=== PATIENT | female | born 1970 | race Caucasian/White ===

== ENCOUNTER 2017-10-27 12:10 | Emergency (ER) | payer OTHER ==
[2017-10-27] MEDS ORDERED: XYLOCAINE 1% HCL 20 ML MDV IJ ONE (12:40)
[2017-10-27] MEDS ORDERED: Adacel Vial IM ONE ×2 (12:40→13:22)
--- NOTE | 2017-10-27 12:40 | ERPHSYRPT ---
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 She doesn't recall the last time she had her tetanus vaccination. She has no numbness or tingling. She is able to move her thumb and finger without difficulty. Her past medical history is unremarkable. Timing/Duration: today Quality: painful Severity: mild Location: hands (left) Possible Causes: other (laceration) Allergies/Adverse Reactions: No Known Drug Allergies Allergy (Unverified 10/27/17 12:20) Home Medications: Venlafaxine HCl [Venlafaxine HCl] 1 tab PO DAILY 10/27/17 [History] Hx Tetanus, Diphtheria Vaccination/Date Given: No Hx Influenza Vaccination/Date Given: No Hx Pneumococcal Vaccination/Date Given: No Immunizations Up to Date: Yes - Review of Systems Constitutional: No Fever, No Chills Eyes: No Symptoms Ears, Nose, & Throat: No Symptoms Respiratory: No Cough, No Dyspnea Cardiac: No Chest Pain, No Edema, No Syncope Abdominal/Gastrointestinal: No Abdominal Pain, No Nausea, No Vomiting, No Diarrhea Genitourinary Symptoms: No Dysuria Musculoskeletal: No Back Pain, No Neck Pain Skin: Other (laceration) Neurological: No Dizziness, No Focal Weakness, No Sensory Changes Psychological: No Symptoms Endocrine: No Symptoms Hematologic/Lymphatic: No Symptoms Immunological/Allergic: No Symptoms All Other Systems: Reviewed and Negative - Past Medical History Pertinent Past Medical History: No - Past Surgical History Past Surgical History: Yes Musculoskeletal: Orthopedic Surgery Female Surgical History: Tubal Ligation - Social History Smoking Status: Former smoker Drug Use: none Patient Lives Alone: No - Female History Hx Last Menstrual Period: last month Hx Now: No - Nursing Vital Signs Nursing Vital Signs: Initial Vital Signs Temperature 98.4 F 10/27/17 12:16 Pulse Rate 73 10/27/17 12:16 Respiratory Rate 18 10/27/17 12:16 Blood Pressure 110/78 10/27/17 12:16 O2 Sat by Pulse Oximetry 100 10/27/17 12:16 Pain Scale Pain Intensity 5 - Physical Exam General Appearance: no apparent distress, alert Eye Exam: PERRL/EOMI, eyes nml inspection Ears, Nose, Throat Exam: normal ENT inspection, pharynx normal, moist mucous membranes Neck Exam: normal inspection, non-tender, supple, full range of motion Respiratory Exam: normal breath sounds, lungs clear, No respiratory distress Cardiovascular Exam: regular rate/rhythm, normal heart sounds Gastrointestinal/Abdomen Exam: soft, mass, No tenderness Pelvic Exam: not done Rectal Exam: not done Back Exam: normal inspection, normal range of motion, No CVA tenderness, No vertebral tenderness Extremity Exam: normal inspection, normal range of motion Neurologic Exam: alert, oriented x 3, cooperative, normal mood/affect, sensation nml, No motor deficits Skin Exam: normal color, laceration (small 1 cm linear laceration in web space between left thumb and index finger. NO bleeding.) SpO2: 100 Oxygen Delivery: Room Air Procedures - Laceration/Wound Repair Left Hand Wound Location: Left, hand Wound Length (cm): 1 Wound's Depth, Shape: superficial, linear Wound Explored: clean Irrigated: Yes Hibiclens Prep: Yes Anesthesia: local, 1% Lidocaine Volume Anesthetic (ccs): 8 Wound Repaired With: sutures Suture Size/Type: 5-0, nylon Number of Sutures: 3 Layer Closure?: No Sterile Dressing Applied?: Yes Splint Applied?: No Ordered Tests: Active Orders 24 hr Category Date Time Status Wound Care STAT Care 10/27/17 12:40 Active Medication Summary Discontinued Medications Generic Name Dose Route Start Last Admin Trade Name Freq PRN Reason Stop Dose Admin Diphtheria/Tetanus/Acell Pertussis 0.5 ml 10/27/17 12:40 10/27/17 13:25 Adacel Vial IM 10/27/17 12:41 0.5 ml .ONCE ONE Administration Diphtheria/Tetanus/Acell Pertussis Confirm 10/27/17 13:22 Adacel Vial Administered 10/27/17 13:23 Dose 0.5 ml IM .STK-MED ONE Lidocaine HCl 10 ml 10/27/17 12:40 10/27/17 13:26 Xylocaine 1% Hcl 20 Ml Mdv IJ 10/27/17 12:41 10 ml STAT ONE Administration Lidocaine HCl Confirm 10/27/17 12:45 Xylocaine 1% Hcl 20 Ml Mdv Administered 10/27/17 12:46 Dose 5 ml .ROUTE .STK-MED ONE Lidocaine HCl Confirm 10/27/17 13:22 Xylocaine 1% Hcl 20 Ml Mdv Administered 10/27/17 13:23 Dose 5 ml .ROUTE .STK-MED ONE - Progress Progress: improved Counseled pt/family regarding: diagnosis, need for follow-up - Departure Time of Disposition: 14:00 Departure Disposition: Home Clinical Impression: Laceration of left hand Condition: Stable Critical Care Time: No Referrals: BRIAN CARDONA [Primary Care Provider] - Additional Instructions: The you have a laceration to your left hand that was closed with 3 sutures. Have the sutures removed by your primary medical doctor in about 12 days. Keep the area dry but you can take brief showers. You were given a tetanus vaccination in the ER. Take Tylenol or ibuprofen as needed for pain. Prescriptions: Amoxicillin/Potassium Clav [Augmentin 875-125 Tablet] 1 each PO BID #20 tablet
[2017-10-27] MEDS ORDERED: XYLOCAINE 1% HCL 20 ML MDV ONE ×2 (12:45→13:22)
[2017-10-27] MEDS ORDERED: BACIGUENT PACKET ONE (13:59)
[2017-10-27] MEDS ORDERED: BACIGUENT PACKET TP ONE (13:59)
[2017-10-27 14:09] VITALS: BP 116/75; PULSE 72; O2SAT 99
== END 2017-10-27 14:15 | disposition home or self-care (01) ==
LOC: ED 12:10
PROC: 0HQGXZZ Repair Left Hand Skin, External Approach (ICD-10-PCS; principal; 2017-10-27)
DX: W26.0XXA Contact with knife, initial encounter (principal); Y93.89 Activity, other specified; Y92.89 Other specified places as the place of occurrence of the external cause
CPT/HCPCS: 12001; 90471; 90715; 96372; 99283; 99284; A9270-GY